=== PATIENT | female | born 1980 | race Caucasian/White ===

== ENCOUNTER 2024-12-05 17:18 | Observation (INO) | payer SELFPAY ==
[2024-12-05] VITALS (14 sets, daily range): BP systolic 110–150; BP diastolic 67–86; PULSE 44–65; RESP 12–23; TEMP 36.4; O2SAT 92–100; BMI 22.4; BMI 23.8
--- NOTE | 2024-12-05 17:35 | ECG_ITS ---
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 Measurements Intervals [place] Rate: 46 P: 62 [place]: 112 QRS: 44 QRSD: 89 T: 39 QT: 460 QTc: 405 Interpretive Statements SINUS BRADYCARDIA WITH SHORT [place] INTERVAL LOW QRS VOLTAGE IN PRECORDIAL LEADS [QRS DEFLECTION < 1.0 mV IN CHEST LEADS] No previous ECG available for comparison Electronically Signed On 12-05-2024 22:40:16 CDT by Iwona Garcia M.D. [email or web address]
[2024-12-05 17:42] LABS: Basophils # 0.1 10^3/uL (0.0-0.1); Basophils % 0.3 %; Eosinophils % 0.1 %; Hematocrit 40.8 % (36-47); Lymphocytes # 1.4 10^3/uL (0.8-4.8); Lymphocytes % 8.8 %; Mean Corpuscular HGB Conc 32.4 g/dL (30-55); Mean Corpuscular Hemoglobin 27.2 pg (27-33); Mean Platelet Volume 9.2 fL (7.4-10.4); Monocytes # 0.7 10^3/uL (0.2-0.9); Neutrophils # 14.07 10^3/uL (1.8-7.7); Neutrophils % 86.3 %; Nucleated Red Blood Cells % 0 %; Platelet Count 262 10^3/cmm (157-399); Red Blood Count 4.86 10^6/uL (3.85-5.65); Red Cell Distribution Width 13.3 % (12.1-15.1); White Blood Count 16.32 10^3/uL (3.29-11.43)
[2024-12-05 17:52] LABS: HCG, Serum Qual Negative (Negative)
[2024-12-05 17:59] LABS: Alanine Aminotransferase 12 U/L (0-33); Albumin Level 4.3 g/dL (3.5-5.2); Alkaline Phosphatase 73 U/L (35-105); Blood Urea Nitrogen 13 mg/dL (6-20); Calcium 8.7 mg/dL (8.5-10.5); Carbon Dioxide 24 mmol/L (22-29); Chloride 102 mmol/L (98-107); Globulin 2.7 g/dL (1.3-4.6); Glomerular Filtration Rate 109.6 mL/min (90-130); Glucose 111 mg/dL (65-115); Osmolality Calculated 283 mOsm/kg (285-295); Sodium 136 mmol/L (136-145); Total Bilirubin 2.4 mg/dL (0.15-1.2)
[2024-12-05 18:00] LABS: Aspartate Amino Transferase 17 U/L (0-32)
--- NOTE | 2024-12-05 18:45 | CTR_ITS ---
PROCEDURE INFORMATION: Exam: CT Head Without Contrast Exam date and time: 12/05/2024 6:49 PM Age: 44 years old Clinical indication: Syncope and collapse and other: Seizure; Syncopal episode with possible seizure activity. ; Additional info: Seizure, loc, new TECHNIQUE: Imaging protocol: Computed tomography of the head without contrast. Axial, coronal and sagittal reformatted images were created and reviewed. Radiation optimization: All CT scans at this facility use at least one of these dose optimization techniques: automated exposure control; mA and/or kV adjustment per patient size (includes targeted exams where dose is matched to clinical indication); or iterative reconstruction. COMPARISON: No relevant prior studies available. RADIATION DOSE METRICS: Total DLP (mGy-cm): 966.66 FINDINGS: Brain: No CT evidence of acute intracranial hemorrhage or acute territorial infarction. No significant mass effect or midline shift. Basal cisterns patent. Cerebral ventricles: Normal in size and configuration. Paranasal sinuses: Unremarkable. No fluid levels. Mastoid air cells: Grossly unremarkable. Bones: Unremarkable. No acute fracture. Soft tissues: Grossly unremarkable. CT/CT head wo con* [id number] IMPRESSION: No CT evidence of acute intracranial pathology.
[2024-12-05 19:01] LABS: Troponin(5th) Baseline < 6 ng/L (0-10)
[2024-12-05] MEDS: sodium chloride 0.9% 1,000 ML 999 ML IV (19:06)
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
[2024-12-05 20:11] LABS: Troponin 5 2HR Delta 0.00001 ABS# (0-10)
[2024-12-05 20:18] LABS: Free T4 Free Thyroxine 1.08 ng/dL (0.82-1.77); Thyroid Stimulating Hormone 0.52 uIU/mL (0.27-4.20)
--- NOTE | 2024-12-05 20:45 | ECG_ITS ---
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 Measurements Intervals [place] Rate: 39 P: 66 [place]: 123 QRS: 54 QRSD: 89 T: 47 QT: 505 QTc: 409 Interpretive Statements SINUS BRADYCARDIA LOW QRS VOLTAGE IN PRECORDIAL LEADS [QRS DEFLECTION < 1.0 mV IN CHEST LEADS] CRITICAL TEST RESULT Compared to ECG 12/05/2024 17:41:05 Short [place] interval no longer present Electronically Signed On 12-05-2024 22:47:59 CDT by Iwona Garcia M.D. [id number]
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
[2024-12-05 22:29] LABS: Bilirubin Urine Negative (Negative); Blood Urine Negative (Negative); Glucose Urine UA Negative (Normal); Ketones Urine Trace (Negative); Leukocyte Esterase Urine Negative (Negative); Nitrate Urine Negative (Negative); Protein Urine 1+ (Negative); Specific Gravity, Urine 1.021 (1.005-1.030); Urine Appearance Turbid (CLEAR); Urine Color Yellow (Yellow); Urobilinogen Urine 0.2 mg/dL (Negative)
[2024-12-05 22:34] LABS: Add Urine Microscopic? YES; Bacteria Urine 1+ /hpf; Hyaline Casts Urine 2.05 /lpf; RBC Urine 0-2 /hpf (0-2); Squamous Epithelial Cell Urine 0-5 /hpf (0-5); WBC Urine 0-5 /hpf (0-5)
[2024-12-05 22:36] LABS: Amphetamines Screen Urine Positive (Negative); Barbiturates Screen Urine Negative (Negative); Benzodiazepines Screen Urine Negative (Negative); Cocaine Screen Urine Negative (Negative); Opiate Screen Urine Negative (Negative); PCP Screen Urine Negative (Negative); THC Screen Urine Positive (Negative)
--- NOTE | 2024-12-05 22:50 | PC.NURSE ---
Received report from ER at this time.
[2024-12-05 23:03] LABS: Estmated Average Glucose 100; Hemoglobin A1C 5.1 % (4.0-6.0)
[2024-12-05 23:10] LABS: Hepatitis A Antibody IgM Non-Reactive (Nonreactive); Hepatitis B Core AB, Total Non-Reactive (Nonreactive); Hepatitis B Surface AB < 3.5 (11.5-1000); Hepatitis B Surface Antigen Non-Reactive (Nonreactive); Hepatitis C Virus Antibody Non-Reactive (Nonreactive)
[2024-12-06] VITALS (28 sets, daily range): BP systolic 101–147; BP diastolic 58–102; PULSE 46–107; RESP 11–25; TEMP 36.4–36.9; O2SAT 95–100
[2024-12-06] MEDS: thiamine 100 mg/mL 2mL SDV IVP (00:12)
[2024-12-06] MEDS: sodium chloride 0.9% 1,000 ML 30 ML IV (00:13)
[2024-12-06] MEDS: enoxaparin 40 mg/0.4 mL Syringe SUBCUT (00:13)
--- NOTE | 2024-12-06 00:30 | ECG_ITS ---
[employer] 3LM Test Date: 2024-12-06 Pat Name: Sherry Dodson Department: Room: [facility]06 Gender: Female Eye Physician: : 1980 Requested By: Andrew Sawant Order Number: [id number] Dashawn MD: Iwona Garcia M.D. Measurements Intervals [place] Rate: 52 P: 70 [place]: 119 QRS: 66 QRSD: 90 T: 50 QT: 455 QTc: 424 Interpretive Statements SINUS BRADYCARDIA WITH SHORT [place] INTERVAL LOW QRS VOLTAGE IN PRECORDIAL LEADS [QRS DEFLECTION < 1.0 mV IN CHEST LEADS] Compared to ECG 12/05/2024 19:34:20 Short [place] interval now present Electronically Signed On 12-06-2024 21:11:35 CDT by Iwona Garcia M.D. [email or web address]
[2024-12-06 00:57] LABS: Basophils # 0.1 10^3/uL (0.0-0.1); Basophils % 0.3 %; Eosinophils % 0.2 %; Hematocrit 39.1 % (36-47); Lymphocytes # 2.4 10^3/uL (0.8-4.8); Mean Corpuscular HGB Conc 31.5 g/dL (30-55); Mean Corpuscular Hemoglobin 26.7 pg (27-33); Mean Platelet Volume 9.2 fL (7.4-10.4); Neutrophils # 12.52 10^3/uL (1.8-7.7); Neutrophils % 78.2 %; Nucleated Red Blood Cells % 0 %; Platelet Count 233 10^3/cmm (157-399); Red Cell Distribution Width 13.3 % (12.1-15.1); White Blood Count 16.03 10^3/uL (3.29-11.43)
[2024-12-06 01:11] LABS: NT Pro B Type Natriuretic Pept 198 pg/mL (0-125); Procalcitonin 0.02 ng/mL (0-0.5); Prolactin 10.93 ng/mL (4.8-23.3); Vitamin B12 745 pg/mL (232-1245)
[2024-12-06 01:14] LABS: Alanine Aminotransferase 11 U/L (0-33); Albumin Level 4.1 g/dL (3.5-5.2); Alkaline Phosphatase 72 U/L (35-105); Anion Gap 13.7 (5-19); Aspartate Amino Transferase 13 U/L (0-32); Blood Urea Nitrogen 13 mg/dL (6-20); Calcium 8.3 mg/dL (8.5-10.5); Carbon Dioxide 25 mmol/L (22-29); Chloride 104 mmol/L (98-107); Globulin 2.5 g/dL (1.3-4.6); Glomerular Filtration Rate 78.7 mL/min (90-130); Glucose 94 mg/dL (65-115); Magnesium 2.3 mg/dL (1.7-2.3); Osmolality Calculated 288 mOsm/kg (285-295); Phosphorus 2.1 mg/dL (2.5-4.5); Potassium 3.7 mmol/L (3.5-5.1); Sodium 139 mmol/L (136-145); Total Bilirubin 2.2 mg/dL (0.15-1.2); Total Protein 6.6 g/dL (6.6-8.7)
[2024-12-06 01:16] LABS: Lactic Sepsis W/Reflex 2.1 mmol/L (0.5-2.2)
[2024-12-06 01:35] LABS: Troponin 5 6HR Delta 0.00001 ng/L (0-12)
[2024-12-06 02:39] LABS: Reflex Lactate Order REFLEX LACTIC ORDERD
[2024-12-06 04:36] LABS: Lactic Acid level (Lactate) 0.7 mmol/L (0.5-2.2)
--- NOTE | 2024-12-06 09:17 | PM.PN ---
Subjective Subjective: Patient has not had any seizure activity or syncopal episodes since the hospital admission. Her heart rate stays in the upper 40s and low 50s in the lying down. Goes up into the 60s and 70s with sitting up or standing up. The urine showed marijuana and amphetamine Medications: Medication Review Details: Current Medications Acetaminophen (Acetaminophen 500 Mg Tablet) 500 mg PO Q4H PRN PRN Reason: fever Albuterol/Ipratropium (Ipratropium-Albuterol 3 Ml Neb) 3 ml INHALATION Q6H PRN PRN Reason: SHORTNESS OF BREATH Atropine Sulfate (Atropine 0.1 Mg/Ml Syr 10 Ml) 1 mg IVP Q12H PRN PRN Reason: symptomatic bradycardia, HR<50 Enoxaparin Sodium (Enoxaparin 40 Mg/0.4 Ml Syringe) 40 mg SUBCUT Q24H [facility] Last Admin: 12/06/24 00:13 Dose: 40 mg Sodium Chloride (Sodium Chloride 0.9%) 1,000 mls @ 30 mls/hr IV .Q24H [facility] Last Admin: 12/06/24 00:13 Dose: 30 mls/hr Lorazepam (Lorazepam 2 Mg/Ml Inj 1 Ml) 2 mg IVP Q8H PRN PRN Reason: SEIZURES Ondansetron HCl (Ondansetron 2 Mg/Ml Sdv 2 Ml) 4 mg IVP Q6H PRN PRN Reason: NAUSEA AND VOMITING Vitals/I&O/Wt Last Vital Signs Temp 98.0 F 12/06/24 04:00 Pulse 50 L 12/06/24 09:08 Resp 16 12/06/24 09:08 BP 122/73 12/06/24 06:30 Pulse Ox 97 12/06/24 09:08 O2 Del Method Room Air 12/06/24 09:08 12/05/24 12/06/24 12/06/24 22:59 06:59 14:59 Intake Total 1000 / 1000 Balance 1000 / 1000 Weight last 48 hrs Weight 143 lb 4 oz Weight 143 lb 4.807 oz Weight 135 lb Physical Exam Narrative: GENERAL: The patient is alert and oriented times three. Not in any acute distress. HEENT: No significant pallor, icterus or lymphadenopathy.Oral cavity: There are no mucous membrane lesions. NECK: Trachea appears to be central. No masses noted. No JVD or thyromegaly appreciated. RESPIRATORY: Chest is symmetrical. No intercostals muscle retraction or any accessory muscle activation. There is no chest wall tenderness. Breath sounds are heard bilaterally. No rales or rhonchi heard. No evidence of any consolidation. BREASTS: Deferred. HEART: The heart sounds are normal. No S3 or S4. No significant murmurs. No pericardial rub ABDOMEN: No vessel pulsations or distention. No tenderness. No organomegaly appreciated. Bowel sounds are normally heard. : Deferred. RECTAL: Deferred. LYMPHATIC: No lymphadenopathy noted in the neck. EXTREMITIES: No edema or cyanosis. No clubbing. MUSCULOSKELETAL: No acute joint deformities or swelling SKIN: There are no significant rashes or ecchymosis NEUROPSYCHIATRIC: The patient is alert and oriented x3. Appears to be in a good mood. No tremors or rigidity noted. Data 12/06/24 00:49 12/06/24 00:49 Other Labs: Laboratory Last Values WBC 16.03 10^3/uL (3.29-11.43) H 12/06/24 00:49 RBC 4.60 10^6/uL (3.85-5.65) 12/06/24 00:49 Hgb 12.30 g/dL (11.27-16.99) 12/06/24 00:49 Hct 39.1 % (36-47) 12/06/24 00:49 MCV 85.0 fl (85-98) 12/06/24 00:49 MCH 26.7 pg (27-33) L 12/06/24 00:49 MCHC 31.5 g/dL (30-55) 12/06/24 00:49 RDW 13.3 % (12.1-15.1) 12/06/24 00:49 Plt Count 233 10^3/cmm (157-399) 12/06/24 00:49 MPV 9.2 fL (7.4-10.4) 12/06/24 00:49 Neut % (Auto) 78.2 % 12/06/24 00:49 Lymph % (Auto) 15.0 % 12/06/24 00:49 [place] % (Auto) 6.0 % 12/06/24 00:49 Eos % (Auto) 0.2 % 12/06/24 00:49 Baso % (Auto) 0.3 % 12/06/24 00:49 Neut # (Auto) 12.52 10^3/uL (1.8-7.7) H 12/06/24 00:49 Lymph # (Auto) 2.4 10^3/uL (0.8-4.8) 12/06/24 00:49 [place] # (Auto) 1.0 10^3/uL (0.2-0.9) H 12/06/24 00:49 Eos # (Auto) 0.0 10^3/uL (0.0-0.8) 12/06/24 00:49 Baso # (Auto) 0.1 10^3/uL (0.0-0.1) 12/06/24 00:49 Nucleated RBC % (auto) 0 % 12/06/24 00:49 Nucleated RBCs # 0.0 /100WBC 12/06/24 00:49 Sodium 139 mmol/L (136-145) 12/06/24 00:49 Potassium 3.7 mmol/L (3.5-5.1) 12/06/24 00:49 Chloride 104 mmol/L (98-107) 12/06/24 00:49 Carbon Dioxide 25 mmol/L (22-29) 12/06/24 00:49 Anion Gap 13.7 (5-19) 12/06/24 00:49 BUN 13 mg/dL (6-20) 12/06/24 00:49 Creatinine 0.8 mg/dL (0.5-0.9) 12/06/24 00:49 GFR Calculation 78.7 mL/min (90-130) L 12/06/24 00:49 Glucose 94 mg/dL (65-115) 12/06/24 00:49 Estimat Average Glucose 100 12/05/24 19:28 Hemoglobin A1c 5.1 % (4.0-6.0) 12/05/24 19:28 Calculated Osmolality 288 mOsm/kg (285-295) 12/06/24 00:49 Lactic Acid 2.1 mmol/L (0.5-2.2) 12/06/24 00:49 Lactic Acid (Sepsis) 0.7 mmol/L (0.5-2.2) 12/06/24 04:11 Calcium 8.3 mg/dL (8.5-10.5) L 12/06/24 00:49 Phosphorus 2.1 mg/dL (2.5-4.5) L 12/06/24 00:49 Magnesium 2.3 mg/dL (1.7-2.3) 12/06/24 00:49 Total Bilirubin 2.2 mg/dL (0.15-1.2) H 12/06/24 00:49 AST 13 U/L (0-32) 12/06/24 00:49 ALT 11 U/L (0-33) 12/06/24 00:49 Alkaline Phosphatase 72 U/L (35-105) 12/06/24 00:49 Troponin T Baseline < 6 ng/L (0-10) 12/05/24 17:36 Troponin T 120 Minute 6.00 ng/L (0-10) 12/05/24 19:28 Delta Troponin T 0.89904 ABS# (0-10) 12/05/24 19:28 Troponin T Hi Sens 6Hr 6.00 ng/L (0-10) 12/06/24 00:49 Troponin T Hi Sens 6Hr Delta 0.09006 ng/L (0-12) 12/06/24 00:49 NT-Pro-B Natriuret Pep 198 pg/mL (0-125) H 12/05/24 19:28 Total Protein 6.6 g/dL (6.6-8.7) 12/06/24 00:49 Albumin 4.1 g/dL (3.5-5.2) 12/06/24 00:49 Globulin 2.5 g/dL (1.3-4.6) 12/06/24 00:49 Vitamin B12 745 pg/mL (232-1245) 12/05/24 19:28 Procalcitonin 0.02 ng/mL (0-0.5) 12/05/24 19:28 TSH 0.52 uIU/mL (0.27-4.20) 12/05/24 17:30 Free T4 1.08 ng/dL (0.82-1.77) 12/05/24 17:30 Prolactin 10.93 ng/mL (4.8-23.3) 12/05/24 19:28 HCG, Qual Negative (Negative) 12/05/24 17:36 Urine Color Yellow (Yellow) 12/05/24 22:19 Urine Appearance Turbid (CLEAR) A 12/05/24 22:19 Urine pH 5.0 (5-7) 12/05/24 22:19 Ur Specific [place] 1.021 (1.005-1.030) 12/05/24 22:19 Urine Protein 1+ (Negative) A 12/05/24 22:19 Urine Glucose (UA) Negative (Normal) 12/05/24 22:19 Urine Ketones Trace (Negative) 12/05/24 22:19 Urine Blood Negative (Negative) 12/05/24 22:19 Urine Nitrate Negative (Negative) 12/05/24 22:19 Urine Bilirubin Negative (Negative) 12/05/24 22:19 Urine Urobilinogen 0.2 mg/dL (Negative) 12/05/24 22:19 Ur Leukocyte Esterase Negative (Negative) 12/05/24 22:19 Urine RBC 0-2 /hpf (0-2) 12/05/24 22:19 Urine WBC 0-5 /hpf (0-5) 12/05/24 22:19 Ur Squamous Epith Cells 0-5 /hpf (0-5) 12/05/24 22:19 Amorphous Sediment Not Reportable 12/05/24 22:19 Urine Bacteria 1+ /hpf (NONE) H 12/05/24 22:19 Hyaline Casts 2.05 /lpf 12/05/24 22:19 Urine Opiates Screen Negative ng/mL (Negative) 12/05/24 22:19 Ur Barbiturates Screen Negative ng/mL (Negative) 12/05/24 22:19 Ur Phencyclidine Scrn Negative ng/mL (Negative) 12/05/24 22:19 Ur Amphetamines Screen Positive ng/mL (Negative) H 12/05/24 22:19 U Benzodiazepines Scrn Negative ng/mL (Negative) 12/05/24 22:19 Urine Cocaine Screen Negative ng/mL (Negative) 12/05/24 22:19 U Marijuana (THC) Screen Positive ng/mL (Negative) H 12/05/24 22:19 Hepatitis A IgM Ab Non-reactive (Nonreactive) 12/05/24 17:36 Hep Bs Antigen Non-reactive (Nonreactive) 12/05/24 17:36 Hep Bs Antibody < 3.5 (11.5-1000) L 12/05/24 17:36 Hep B Core Total Ab Non-reactive (Nonreactive) 12/05/24 17:36 Hepatitis C Antibody Non-reactive (Nonreactive) 12/05/24 17:36 A&P Assessment and plan (1) Syncope and collapse: Orthostatic vitals were performed. Her blood pressure was 121/88 with a heart rate of 58 in the lying down position. It was 128/98 with a heart rate of 64 in the sitting up and 121/82 with a heart rate of 64 in the standing position. She has no significant orthostatic hypotension at this time. No recurrence of syncope. No symptomatic bradycardia. No pauses. The echocardiogram from today revealed normal LV size ejection fraction. If the patient continues to remain stable, may be discharged home from a cardiac standpoint. She may go home with an event monitor for 2 weeks. (2) Seizure: Neurology evaluation and recommendations pending (3) Bradycardia, sinus: Patient has no documented symptomatic bradycardia arrhythmia. The marijuana abuse could be a contributing factor for the bradycardia. This was discussed with the patient in detail. She is strongly advised to quit or cut back. (4) Marijuana abuse: As mentioned above Plan If the patient continues to remain stable, may go home with an event monitor. Two thirds of the echocardiogram were discussed with the patient. Also discussed with Please make an appointment to be seen in the office in a week with a nurse practitioner I may see him in the office in 1 month PDMP PDMP Reviewed: Not Reviewed Attestations Medical Necessity Statement*: Possible discharge home today Coding Level of Care Code Acute Code for Chg Fwd Diagnoses Syncope and collapse R55 Seizure R56.9 Bradycardia, sinus R00.1 Marijuana abuse F12.10
--- NOTE | 2024-12-06 10:05 | PC.NURSE ---
Pt up to bathroom. NO dizziness , chest pain or shortness of breath during this activity. Heart rate 56 to 76, sinus rhythm during this activity. Pt asymptomatic.
--- NOTE | 2024-12-06 14:23 | PC.NURSE ---
Discharge instructions including follow-up appts, new medications, EEG, event monitor; Provided and discussed. Carenoted for seizures, syncope and marijuana use. All questions answered. Pt discharge to POV.
--- NOTE | 2024-12-06 19:25 | USCV_ITS ---
Sherry Dodson Age: 44 Gender: F : 1980 Exam Date: 12/06/2024 07:14 Ordering Phys: Andrew Sawant MD Technologist: Exam Location: [facility] [place] Indication: BP: 128 / 75 HR: 65 Rhythm: Sinus Technical Quality: Adequate MEASUREMENTS (Male / Female) Normal Values 2D ECHO LV Diastolic Diameter PLAX 4.3 cm 4.2 - 5.9 / 3.9 - 5.3 cm IVS Diastolic Thickness 1.0 cm 0.6 - 1.0 / 0.6 - 0.9 cm IVS Systolic Thickness 1.1 cm LVPW Diastolic Thickness 1.3 cm 0.6 - 1.0 / 0.6 - 0.9 cm LVPW Systolic Thickness 1.8 cm LVOT Diameter 2.0 cm LV Ejection Fraction 2D Teich 59.4 % LV Ejection Fraction MOD 4C 65.6 % LV Ejection Fraction MOD 2C 66.3 % LV Ejection Fraction 2C AL 68.5 % LA Diameter 3.0 cm RA Systolic Volume 4C AL 21.5 ml RA Systolic Volume 4C MOD 20.5 ml Aorta at Sinotubular Diameter 2.7 cm IVC Diameter 1.7 cm M-MODE LA Ao Ratio MM 1.2 AV Cusp Separation MM 2.2 cm DOPPLER AV Peak Velocity 122.0 cm/s LVOT Peak Velocity 85.0 cm/s AV Area Cont Eq vti 2.3 cm squared AV Area Cont Eq pk 2.2 cm squared MV Peak Velocity 103.0 cm/s MV Area PHT 4.2 cm squared Mitral E to A Ratio 1.8 TV Peak Velocity 153.0 cm/s TR Peak Velocity 166.0 cm/s TR Peak Gradient 11.0 mmHg PV Peak Velocity 107.0 cm/s FINDINGS Left Ventricle Normal left ventricular size and systolic function, EF 66%. No regional wall motion abnormalities. Right Ventricle Normal right ventricular size and systolic function. Right Atrium The right atrium is normal in size. Left Atrium The left atrium is normal in size. Mitral Valve Trace to mild mitral valve regurgitation. Aortic Valve No gross abnormalities noted Tricuspid Valve No gross abnormalities noted Pulmonic Valve No gross abnormalities noted Pericardium Normal pericardium without effusion. Aorta Normal ascending aorta dimension. IVC Normal inferior vena cava. CONCLUSIONS Normal left ventricular size and systolic function, EF 66%. No regional wall motion abnormalities. Trace to mild mitral valve regurgitation. Normal cardiac chamber sizes No gross valvular abnormalities No intracardiac masses There is no pericardial effusion. No similar previous studies are available for comparison Dr Iwona Garcia MD FAC (Electronically Signed) Final Date: 06 December 2024 12:07 S
[2024-12-08 16:20] LABS: Anti-Nuclear Antibody Screen NEGATIVE (NEGATIVE)
== END 2024-12-06 14:23 | disposition home or self-care (01) ==
LOC: ER 20:11 → CSU 20:37 → ICU 22:24
PROVIDERS: Emergency Medicine; Admitting Provider Internal Medicine; Emergency Provider Emergency Medicine; Family Provider Family Medicine; PCP Family Medicine; Visit Provider Hospitalist
DX: R56.9 Unspecified convulsions (principal); R55 Syncope and collapse; R00.1 Bradycardia, unspecified; F12.10 Cannabis abuse, uncomplicated; F17.210 Nicotine dependence, cigarettes, uncomplicated; F17.200 Nicotine dependence, unspecified, uncomplicated; S01.502A Unspecified open wound of oral cavity, initial encounter; W19.XXXA Unspecified fall, initial encounter
CPT/HCPCS: 36415; 70450; 80053; 80306; 81001; 82607; 83036; 83605; 83735; 83880; 84100; 84145; 84146; 84439; 84443; 84484; 84703; 85025; 86038; 86705; 86706; 86709; 86803; 87340; 93005; 93306; 96365; 96366; 96372; 96375; 99285; G0378; J1650; J3411; J7030